=== PATIENT | male | born 1990 | race Caucasian/White ===

== ENCOUNTER 2016-07-18 17:26 | Emergency (ER) | payer SELFPAY ==
[~2016-07-18] VITALS: Ht 157.5 cm; Wt 60.0 kg
[2016-07-18 17:28] VITALS: BP 139/83; PULSE 77; RESP 16; TEMP 98; O2SAT 96
--- NOTE | 2016-07-18 21:03 | PD ---
HPI Chief Complaint: Abdominal Pain Time Seen by Provider: 20:57 Travel History International Travel<30 days: No Contact w/Intl Traveler<30days: No Traveled to known affect area: No History of Present Illness HPI 26-year-old male came to the emergency room with history of left-sided flank pain going down to his groin and into the testicular area. There is associated dysuria but no hematuria. Patient said that he had fever which was subjective. He did not measure his temperature. This has been going on for 2 weeks as per the patient. He had similar symptoms in the past which was treated by acyclovir as per him. Patient is sexually active. No history of any penile discharge. Vital signs were stable. [facility] Past Medical History Narrative Medical List of his past medical history as reviewed from the nursing note. Social History Tobacco Use: No Allergies-Medications (Allergen,Severity, Reaction): Coded Allergies: No Known Allergies (Unverified , 07/18/16) Comments No known drug allergies. Reported Meds & Prescriptions Reported Meds & Active Scripts Active Doxycycline Hyclate 100 Mg Cap 100 Mg PO BID 7 Days Narrative Medication List of his home medications reviewed from the nursing note. Review of Systems Except as stated in HPI: all other systems reviewed are Neg Physical Exam Narrative GENERAL: Awake, alert, no obvious distress SKIN: Warm and dry. HEAD: Atraumatic. Normocephalic. EYES: Pupils equal and round. No scleral icterus. No injection or drainage. ENT: No nasal bleeding or discharge. Mucous membranes pink and moist. NECK: Trachea midline. No JVD. CARDIOVASCULAR: Regular rate and rhythm. No murmur appreciated. RESPIRATORY: No accessory muscle use. Clear to auscultation. Breath sounds equal bilaterally. GASTROINTESTINAL: Abdomen soft, non-tender, nondistended. Hepatic and splenic margins not palpable. : Patient is uncircumcised, no external lesions noticed. No penile discharge noticed. Bilateral cremasteric reflex present. No abnormal swelling or redness noticed in the penile or scrotal area. MUSCULOSKELETAL: No obvious deformities. No clubbing. No cyanosis. No edema. No CVA tenderness. NEUROLOGICAL: Awake and alert. No obvious cranial nerve deficits. Motor grossly within normal limits. Normal speech. PSYCHIATRIC: Appropriate mood and affect; insight and judgment normal. Data Data Last Documented VS Vital Signs Date Time Temp Pulse Resp B/P Pulse Ox O2 Delivery O2 Flow Rate FiO2 07/18/16 23:14 70 18 125/74 99 07/18/16 21:20 Room Air 07/18/16 17:28 98.0 Orders Urinalysis - C+S If Indicated (07/18/16 20:35) Gc And Chlamydia Pcr (07/18/16 20:35) Ceftriaxone Inj (Rocephin Inj) (07/18/16 23:00) Doxycycline (Vibramycin) (07/18/16 23:00) Labs Laboratory Tests Test 07/18/16 21:55 Urine Color YELLOW Urine Turbidity CLEAR Urine pH 7.5 Urine Specific [place] GREATER THAN 1.050 Urine Protein TRACE mg/dL Urine Glucose (UA) NEG mg/dL Urine Ketones NEG mg/dL Urine Occult Blood NEG Urine Nitrite NEG Urine Bilirubin NEG Urine Urobilinogen 2.0 MG/DL Urine Leukocyte Esterase NEG Urine WBC 4 /hpf Urine Calcium Oxalate Crystals RARE /hpf Urine Mucus FEW /lpf Microscopic Urinalysis Comment CULT NOT INDICATED Chlamydia trachomatis DNA NOT DETECTED (PCR) Neisseria gonorrhoeae DNA NOT DETECTED (PCR) MDM Medical Decision Making Medical Screen Exam Complete: Yes Emergency Medical Condition: Yes Medical Record Reviewed: Yes Differential Diagnosis Urethritis, GC, chlamydia, UTI Narrative Course 10:55 PM UA looks clean. I have ordered IM Rocephin and doxycycline for the patient. He'll go home with a prescription of doxycycline. He does have history of STD in the past. It would be appropriate to treat him at this point. Procedures EKG Prior to Arrival: No Diagnosis Primary Impression: Urethritis Referrals: Primary Care Physician 3 days Additional Instructions: Please return to the ER if the condition worsens or any other new concerns. Otherwise take the medication as per the prescription direction. Med/Other Pt SpecificInfo: Prescription(s) given Scripts Doxycycline Hyclate 100 Mg [id number] Mg PO BID 7 Days Ref 0 Prov:Margarito Downey MD 07/18/16 Disposition: 01 DISCHARGE HOME Condition: Stable Margarito Downey MD Jul 18, 2016 21:03
[2016-07-18 21:20] VITALS: BP 129/79; PULSE 69; RESP 16; O2SAT 97
[2016-07-18 22:30] LABS: BLOOD, URINE NEG (NEG); CALCIUM OXALATE CRYSTALS,URINE RARE /hpf; COMMENT (UR) CULT NOT INDICATED; CULTURE IF INDICATED CULT NOT INDICATED; GLUCOSE,URINE NEG (NEG); KETONE, URINE NEG (NEG); MUCUS URINE FEW /lpf (OCC); NITRITE,URINE NEG (NEG); PH, URINE 7.5 (5.0-8.5); URINE COLOR YELLOW (YELLW/STRAW)
[2016-07-18] MEDS ORDERED: DOXY100C PO (22:56)
[2016-07-18] MEDS ORDERED: cefTRIAXone 250 MG VIAL IM ONE (23:00)
[2016-07-18] MEDS ORDERED: DOXYCYCLINE HYCLATE 100 MG CAP PO ONE (23:00)
[2016-07-18 23:14] VITALS: BP 125/74
[2016-07-19 01:04] LABS: CHLAMYDIA PCR NOT DETECTED (NOT DETECT); NEISSERIA PCR NOT DETECTED (NOT DETECT)
== END 2016-07-18 23:58 | disposition home or self-care (01) ==
LOC: NEPC 17:26
DX: N34.2 Other urethritis (principal); R30.0 Dysuria; N50.812 Left testicular pain
CPT/HCPCS: 81001; 87491; 87591; 96372; 99284; J0696